=== PATIENT | female | born 1990 | race Caucasian/White ===

== ENCOUNTER 2022-08-12 20:43 | Emergency (ER) | payer BC ==
[~2022-08-12] VITALS: Ht 167.6 cm; Wt 56.0 kg
[2022-08-12 20:52] VITALS: BP 126/83
== END 2022-08-12 23:30 | disposition left against medical advice (07) ==
LOC: ER 20:43
DX: Z53.21 Procedure and treatment not carried out due to patient leaving prior to being seen by health care provider (principal)